=== PATIENT | male | born 1970 | race African-American/Black ===

== ENCOUNTER 2019-06-11 08:02 | Day surgery (SDC) | payer BC ==
[~2019-06-11] VITALS: Ht 180.3 cm; Wt 98.9 kg
[~2019-06-11 08:02] MED LIST: [UNRECOGNIZED DRUG - REMARK]
[2019-06-11] MEDS ORDERED: BUPIVACAINE/PF 0.5% ONE (08:17)
[2019-06-11] MEDS ORDERED: LACTATED RINGERS 1,000 ML IV SCH (09:08)
[2019-06-11 09:11] VITALS: BP 146/102
[2019-06-11] MEDS ORDERED: FENTANYL PF 250 MCG/5ML ONE ×2 (09:35→09:38)
[2019-06-11] MEDS ORDERED: MIDAZOLAM 1 MG/ML, 2ML ONE ×2 (09:35→09:38)
[2019-06-11] MEDS ORDERED: PROPOFOL 50 ML ONE (09:36)
[2019-06-11] MEDS ORDERED: NEOSTIGMINE 1 MG/ML, 10ML ONE (09:44)
[2019-06-11] MEDS ORDERED: ROCURONIUM 10MG/ML,5ML ONE (09:44)
[2019-06-11] MEDS ORDERED: PROPOFOL 10 MG/ML, 20ML ONE (09:44)
[2019-06-11] MEDS ORDERED: CEFAZOLIN 1,000 MG ONE ×3 (09:44→10:03)
[2019-06-11] MEDS ORDERED: ONDANSETRON 2MG/ML, 2ML ONE (09:44)
[2019-06-11] MEDS ORDERED: DEXAMETHASONE 4 MG/ML, 1ML ONE (09:44)
[2019-06-11] MEDS ORDERED: GLYCOPYRROLATE 0.2MG/1ML, 5ML ONE (09:44)
[2019-06-11] MEDS ORDERED: SUCCINYLCHOLINE 20 MG/ML, 10ML ONE (09:45)
[2019-06-11] MEDS ORDERED: METOPROLOL 1 MG/ML, 5ML IV PRN (10:00)
[2019-06-11] MEDS ORDERED: MORPHINE SULFATE 4 MG/ML, 1ML IVPush PRN (10:00)
[2019-06-11] MEDS ORDERED: EPHEDRINE 50 MG/ML, 1ML IM PRN (10:00)
[2019-06-11] MEDS ORDERED: MEPERIDINE/PF 25MG/ML,1ML IVPush PRN (10:00)
[2019-06-11] MEDS ORDERED: PROMETHAZINE 25 MG/ML, 1ML IV PRN (10:00)
[2019-06-11] MEDS ORDERED: MIDAZOLAM 1 MG/ML, 2ML IV PRN (10:00)
[2019-06-11] MEDS ORDERED: ONDANSETRON 2MG/ML, 2ML IV PRN (10:00)
[2019-06-11] MEDS ORDERED: hydrALAzine 20 MG/ML, 1ML IV PRN (10:00)
[2019-06-11] MEDS ORDERED: DIAZEPAM 5 MG/ML, 2ML IVPush PRN (10:00)
[2019-06-11] MEDS ORDERED: OXYcodone 5 MG/5 ML ORAL.SOL UDC PO PRN (10:00)
[2019-06-11] MEDS ORDERED: EPHEDRINE 50 MG/ML, 1ML IVPush PRN (10:00)
[2019-06-11] MEDS ORDERED: DIPHENHYDRAMINE 50 MG/ML, 1ML IVPush PRN (10:00)
[2019-06-11] MEDS ORDERED: ONDANSETRON ODT 8 MG PO PRN (10:00)
[2019-06-11] MEDS ORDERED: BUPIVACAINE LIPOSOME/PF 20ML INFIL ONE (10:30)
[2019-06-11] MEDS: FENTANYL PF 100 MCG/2ML IV PRN ×2 (11:25→11:35)
== END 2019-06-11 13:45 | disposition home or self-care (01) ==
LOC: OUT 08:02
PROVIDERS: ATTEND Surgery
DX: L05.91 Pilonidal cyst without abscess (principal); F17.210 Nicotine dependence, cigarettes, uncomplicated; Z72.89 Other problems related to lifestyle; Z98.890 Other specified postprocedural states
CPT/HCPCS: 11771; 88304; J0330; J0690; J1100; J2250; J2405; J2704; J2710; J3010; J7120; C9290